=== PATIENT | male | born 1930 | race Caucasian/White ===

== ENCOUNTER 2017-01-06 10:16 | Emergency (ER) | payer OTHER ==
[~2017-01-06] VITALS: Ht 175.3 cm; Wt 63.6 kg
[2017-01-06 11:33] LABS: HEMATOCRIT 31.2 % (38.0-50.0); MCH 33.1 PG (29.0-34.0); MCHC 33.3 G/DL (30.0-36.0); MCV 99.4 FL (86-99); MEAN PLAT.VOLUME 10.8 uM^3 (9.0-12.4); PLATELET COUNT 211 K/uL (156-360); RBC DIS.WIDTH-CV 11.9 % (11.8-14.6); RBC DIS.WIDTH-SD 43.1 % (39-53); RED BLOOD COUNT 3.14 M/uL (4.00-5.50); WHITE BLOOD COUNT 9.9 K/uL (4.1-10.2)
[2017-01-06 11:44] LABS: CHLORIDE 100 mEq/L (99-109); POTASSIUM 4.5 mEq/L (3.7-5.4); SODIUM 134 mEq/L (136-147)
[2017-01-06 11:46] LABS: GLUCOSE 103 mg/dL (70-99)
[2017-01-06 11:47] LABS: ANION GAP 8 MEQ/L (2-14)
[2017-01-06 11:48] LABS: INTER. NORMALIZED RATIO 1.1; PROTHROMBIN TIME 10.8 (9.2-11.2); TOTAL BILIRUBIN 0.4 mg/dL (0.0-1.0)
[2017-01-06 11:50] LABS: ALKALINE PHOSPHATASE 105 IU/L (3-129); GFR ESTIMATE (CALCULATED) > 59 mL/min/
[2017-01-06 11:51] LABS: UREA NITROGEN (BUN) 29 mg/dL (9-23)
[2017-01-06 11:53] LABS: CREATINE KINASE 48 IU/L (1-294)
[2017-01-06 12:40] VITALS: BP 176/70
== END 2017-01-06 12:51 | disposition home or self-care (01) ==
LOC: EME 10:16
PROVIDERS: Emergency Medicine
DX: S70.02XA Contusion of left hip, initial encounter (principal); W01.0XXA Fall on same level from slipping, tripping and stumbling without subsequent striking against object, initial encounter; Y93.01 Activity, walking, marching and hiking; Y92.009 Unspecified place in unspecified non-institutional (private) residence as the place of occurrence of the external cause
CPT/HCPCS: 73502; 73552; 80053; 82550; 85027; 85610; 85730; 99281; 99284

== ENCOUNTER 2017-02-14 17:20 | Inpatient (IN) | payer OTHER ==
[~2017-02-14] VITALS: Ht 175.3 cm; Wt 56.0 kg
[2017-02-14 18:38] LABS: HEMATOCRIT 34.4 % (38.0-50.0); MCH 32.9 PG (29.0-34.0); MCHC 32.6 G/DL (30.0-36.0); MCV 101.2 FL (86-99); MEAN PLAT.VOLUME 10.8 uM^3 (9.0-12.4); PLATELET COUNT 325 K/uL (156-360); RBC DIS.WIDTH-CV 12.1 % (11.8-14.6); RBC DIS.WIDTH-SD 44.9 % (39-53); WHITE BLOOD COUNT 20.3 K/uL (4.1-10.2)
[2017-02-14 18:47] LABS: CHLORIDE 97 mEq/L (99-109); POTASSIUM 4.9 mEq/L (3.7-5.4); SODIUM 135 mEq/L (136-147)
[2017-02-14 18:49] LABS: GLUCOSE 129 mg/dL (70-99)
[2017-02-14 18:50] LABS: ANION GAP 11 MEQ/L (2-14)
[2017-02-14 18:51] LABS: TOTAL BILIRUBIN 0.6 mg/dL (0.0-1.0)
[2017-02-14 18:52] LABS: ALKALINE PHOSPHATASE 149 IU/L (3-129)
[2017-02-14 18:53] LABS: GFR ESTIMATE (CALCULATED) 47 mL/min/
[2017-02-14 18:54] LABS: UREA NITROGEN (BUN) 49 mg/dL (9-23)
[2017-02-14 18:56] LABS: LIPASE 13 U/L (1.0-51.0)
[2017-02-14 18:59] LABS: TROP-I INTERPRETATION NEGATIVE; TROPONIN-I < 0.01 ng/mL (0.0-0.30)
[2017-02-14] MEDS ORDERED: CO Q-1010 MG PO (22:14)
[2017-02-15 01:35] VITALS: BP 162/83
[2017-02-15 03:33] VITALS: BP 147/66
[2017-02-15 06:06] LABS: HEMATOCRIT 26.7 % (38.0-50.0); MCH 34.2 PG (29.0-34.0); MCHC 33.7 G/DL (30.0-36.0); MCV 101.5 FL (86-99); MEAN PLAT.VOLUME 10.6 uM^3 (9.0-12.4); PLATELET COUNT 241 K/uL (156-360); RBC DIS.WIDTH-CV 12.1 % (11.8-14.6); RBC DIS.WIDTH-SD 45.4 % (39-53); RED BLOOD COUNT 2.63 M/uL (4.00-5.50); WHITE BLOOD COUNT 15.7 K/uL (4.1-10.2)
[2017-02-15 06:44] LABS: ALKALINE PHOSPHATASE 97 IU/L (3-129); ANION GAP 6 MEQ/L (2-14); CHLORIDE 104 MEQ/L (99-109); GFR ESTIMATE (CALCULATED) > 59 mL/min/; GLUCOSE 100 mg/dL (70-99); SAMPLE HEMOLYSIS CHECK 0; SAMPLE ICTERIC CHECK 0; SAMPLE LIPEMIA CHECK 0; SODIUM 138 MEQ/L (136-147); TOTAL BILIRUBIN 0.4 MG/DL (0.0-1.0); UREA NITROGEN (BUN) 43 mg/dL (9-23)
[2017-02-15 06:46] LABS: POTASSIUM 3.7 MEQ/L (3.7-5.4)
[2017-02-15 07:47] VITALS: BP 187/80
[2017-02-15 07:49] LABS: FERRITIN 390 NG/ML (22-322)
[2017-02-15 11:14] VITALS: BP 142/67
[2017-02-15 12:53] LABS: INTER. NORMALIZED RATIO 1.2; PROTHROMBIN TIME 12.5 (9.2-11.2); PTT 37.3 (25-32)
[2017-02-15 12:54] LABS: HEMATOCRIT 29.3 % (38.0-50.0); MCV 101.4 FL (86-99)
[2017-02-15 15:04] LABS: TYPE OF FLUID PLEURAL
[2017-02-15 15:21] VITALS: BP 138/63
[2017-02-15 15:43] LABS: BODY FLUID EOSINOPHILS 0 % (0-25); BODY FLUID RBC'S 3000 /MM^3 (0-100); BODY FLUID WBC'S 1330 /MM^3 (0-500); MONONUCLEAR WBC'S 5 %; POLYNUCLEAR WBC'S 95 % (0-25)
[2017-02-15 16:13] LABS: BODY FLUID LDH 1478 IU/L
[2017-02-15 18:57] LABS: GLUCOSE 189 mg/dL (70-99); HDL CHOLESTEROL 22 MG/DL (Desirable>=40); LDL CHOLESTEROL 49 mg/dL (Desirable<100); NON-HDL CHOLESTEROL 62 mg/dL (Desirable<160); TOTAL CHOLESTEROL 84 mg/dL (Desirable<200); TRIGLYCERIDES 65 MG/DL (Normal: <150)
[2017-02-15 19:36] VITALS: BP 142/56
[2017-02-16 00:13] VITALS: BP 133/64
[2017-02-16 07:12] LABS: ADD MIUA? YES; BILIRUBIN NEGATIVE; BLOOD SMALL; COLOR YELLOW ((YELLOW)); GLUCOSE (STRIP) NEGATIVE; KETONES NEGATIVE; LEUKOCYTES NEGATIVE; NITRITE NEGATIVE; PROTEIN (STRIP) 30; SPECIFIC GRAVITY 1.027 (1.000-1.030); UROBILINOGEN 0.2 MG/DL (0.2-1.0)
[2017-02-16 07:21] LABS: HEMATOCRIT 26.6 % (38.0-50.0); MCH 34.1 PG (29.0-34.0); MCHC 33.8 G/DL (30.0-36.0); MCV 100.8 FL (86-99); MEAN PLAT.VOLUME 11.5 uM^3 (9.0-12.4); PLATELET COUNT 276 K/uL (156-360); RBC DIS.WIDTH-CV 12.4 % (11.8-14.6); RBC DIS.WIDTH-SD 45.7 % (39-53); RED BLOOD COUNT 2.64 M/uL (4.00-5.50)
[2017-02-16 07:34] LABS: BACTERIA 1+ /HPF; EPITHELIAL CELLS RARE /HPF; MUCUS TRACE /LPF; UCUL ADDED? NO; WHITE BLOOD CELLS 0-5 /HPF (0-5)
[2017-02-16 07:38] VITALS: BP 152/72
[2017-02-16 08:23] LABS: ANION GAP 10 MEQ/L (2-14); CHLORIDE 106 MEQ/L (99-109); GFR ESTIMATE (CALCULATED) > 59 mL/min/; IRON 13 MCG/DL (35-150); POTASSIUM 3.7 MEQ/L (3.7-5.4); SAMPLE HEMOLYSIS CHECK 0; SAMPLE ICTERIC CHECK 0; SAMPLE LIPEMIA CHECK 0; SODIUM 139 MEQ/L (136-147); UREA NITROGEN (BUN) 38 mg/dL (9-23)
[2017-02-16 08:25] LABS: GLUCOSE 89 mg/dL (70-99)
[2017-02-16 10:45] LABS: INTERNAL CONTROL VALID? YES
[2017-02-16 11:19] VITALS: BP 132/63
[2017-02-16 15:28] VITALS: BP 162/77
[2017-02-16 19:38] VITALS: BP 165/74
[2017-02-16 23:57] VITALS: BP 170/77
[2017-02-17 03:25] VITALS: BP 173/77
[2017-02-17 06:50] LABS: EOSINOPHIL (%) 0.3 % (0-5); HEMATOCRIT 25.6 % (38.0-50.0); IMMATURE GRANULOCYTE COUNT 0.1 K/uL; LYMPHOCYTE COUNT 0.8 K/uL (1.0-2.8); MCH 34.3 PG (29.0-34.0); MCV 100.8 FL (86-99); MEAN PLAT.VOLUME 11.2 uM^3 (9.0-12.4); MONOCYTE (%) 4.5 % (3-12); MONOCYTE COUNT 0.6 K/uL (0-0.8); NEUTROPHIL (%) 88.4 % (45-76); PLATELET COUNT 295 K/uL (156-360); RBC DIS.WIDTH-CV 12.3 % (11.8-14.6); RBC DIS.WIDTH-SD 45.8 % (39-53); RED BLOOD COUNT 2.54 M/uL (4.00-5.50); WHITE BLOOD COUNT 13.6 K/uL (4.1-10.2)
[2017-02-17 07:15] LABS: ANION GAP 5 MEQ/L (2-14); CHLORIDE 106 MEQ/L (99-109); GFR ESTIMATE (CALCULATED) > 59 mL/min/; GLUCOSE 95 mg/dL (70-99); POTASSIUM 3.5 MEQ/L (3.7-5.4); SAMPLE HEMOLYSIS CHECK 0; SAMPLE ICTERIC CHECK 0; SAMPLE LIPEMIA CHECK 0; SODIUM 137 MEQ/L (136-147); UREA NITROGEN (BUN) 35 mg/dL (9-23)
[2017-02-17 07:46] VITALS: BP 134/63
[2017-02-17 15:15] VITALS: BP 149/67
[2017-02-17 23:50] VITALS: BP 122/69
[2017-02-18 00:15] LABS: QGTB-NIL 0.13 IU/mL (()); TB AG-NIL <0.00 IU/mL (())
[2017-02-18 05:24] LABS: EOSINOPHIL (%) 0.5 % (0-5); EOSINOPHIL COUNT 0.1 K/uL (0-0.3); HEMATOCRIT 27.6 % (38.0-50.0); IMMATURE GRANULOCYTE (%) 1.8 % (0.0-0.7); IMMATURE GRANULOCYTE COUNT 0.2 K/uL; INSTRUMENT ABS NEUTROPHIL CT 11.1 K/uL; LYMPHOCYTE COUNT 0.9 K/uL (1.0-2.8); MCH 33.1 PG (29.0-34.0); MCHC 32.6 G/DL (30.0-36.0); MCV 101.5 FL (86-99); MEAN PLAT.VOLUME 10.5 uM^3 (9.0-12.4); MONOCYTE (%) 5.2 % (3-12); MONOCYTE COUNT 0.7 K/uL (0-0.8); NEUTROPHIL (%) 85.5 % (45-76); NEUTROPHIL COUNT 11.1 K/uL (1.8-6.4); PLATELET COUNT 339 K/uL (156-360); RBC DIS.WIDTH-CV 12.4 % (11.8-14.6); RBC DIS.WIDTH-SD 46.1 % (39-53); RED BLOOD COUNT 2.72 M/uL (4.00-5.50); WHITE BLOOD COUNT 12.9 K/uL (4.1-10.2)
[2017-02-18 05:49] LABS: ANION GAP 5 MEQ/L (2-14); CHLORIDE 107 MEQ/L (99-109); GFR ESTIMATE (CALCULATED) > 59 mL/min/; GLUCOSE 93 mg/dL (70-99); SAMPLE HEMOLYSIS CHECK 0; SAMPLE ICTERIC CHECK 0; SAMPLE LIPEMIA CHECK 0; SODIUM 138 MEQ/L (136-147); UREA NITROGEN (BUN) 29 mg/dL (9-23)
[2017-02-18 07:54] VITALS: BP 172/78
[2017-02-18 11:55] VITALS: BP 141/69
[2017-02-18 15:30] VITALS: BP 147/67
[2017-02-19] VITALS: BP 156/74
[2017-02-19 05:56] LABS: EOSINOPHIL COUNT 0.1 K/uL (0-0.3); IMMATURE GRANULOCYTE (%) 2.2 % (0.0-0.7); IMMATURE GRANULOCYTE COUNT 0.3 K/uL; INSTRUMENT ABS NEUTROPHIL CT 11.2 K/uL; LYMPHOCYTE COUNT 0.9 K/uL (1.0-2.8); MCH 33.7 PG (29.0-34.0); MCHC 33.5 G/DL (30.0-36.0); MCV 100.8 FL (86-99); MEAN PLAT.VOLUME 10.6 uM^3 (9.0-12.4); MONOCYTE (%) 5.1 % (3-12); MONOCYTE COUNT 0.7 K/uL (0-0.8); NEUTROPHIL (%) 84.7 % (45-76); NEUTROPHIL COUNT 11.2 K/uL (1.8-6.4); PLATELET COUNT 383 K/uL (156-360); RBC DIS.WIDTH-CV 12.3 % (11.8-14.6); RBC DIS.WIDTH-SD 45.5 % (39-53); RED BLOOD COUNT 2.58 M/uL (4.00-5.50); WHITE BLOOD COUNT 13.2 K/uL (4.1-10.2)
[2017-02-19 07:49] VITALS: BP 140/66
[2017-02-19 15:41] VITALS: BP 187/84
[2017-02-19 18:30] VITALS: BP 138/52
[2017-02-20] VITALS (9 sets, daily range): BP systolic 117–148; BP diastolic 48–76
[2017-02-20 06:48] LABS: EOSINOPHIL (%) 1.1 % (0-5); EOSINOPHIL COUNT 0.2 K/uL (0-0.3); HEMATOCRIT 26.8 % (38.0-50.0); IMMATURE GRANULOCYTE (%) 2.5 % (0.0-0.7); IMMATURE GRANULOCYTE COUNT 0.4 K/uL; MCH 33.1 PG (29.0-34.0); MCHC 33.2 G/DL (30.0-36.0); MCV 99.6 FL (86-99); MEAN PLAT.VOLUME 10.2 uM^3 (9.0-12.4); MONOCYTE (%) 5.3 % (3-12); MONOCYTE COUNT 0.8 K/uL (0-0.8); NEUTROPHIL (%) 83.8 % (45-76); PLATELET COUNT 427 K/uL (156-360); RBC DIS.WIDTH-CV 12.4 % (11.8-14.6); RBC DIS.WIDTH-SD 45.1 % (39-53); RED BLOOD COUNT 2.69 M/uL (4.00-5.50); WHITE BLOOD COUNT 14.3 K/uL (4.1-10.2)
[2017-02-20 12:23] LABS: Estimated Average Glucose 117 mg/dL (70-123); HEMOGLOBIN A1c (GLYCOHEMOGLOB) 5.7 % HGB (Below 5.7)
[2017-02-20 18:32] LABS: BICARBONATE 24.2 mEq/L (22-26); CARBOXY HGB 1.7 % (0-5); COMMENTS - BLOOD GASES A+C+; METHEMOGLOBIN 1.9 % (0-1.5); PCO2 47 mm Hg (35-45); PO2 119 mm Hg (80-100); SITE RR; pH 7.32 (7.35-7.45)
[2017-02-20 18:33] LABS: DEVICE SIMPLE MASK
[2017-02-20 18:57] LABS: TROP-I INTERPRETATION NEGATIVE; TROPONIN-I 0.02 ng/mL (0.0-0.30)
[2017-02-20 21:49] LABS: METH RESISTANT S AUREUS PCR NEGATIVE (NEGATIVE)
[2017-02-20 21:57] LABS: PROBE CHECK PASS; SPECIMEN PROCESSING CONTROL PASS
[2017-02-20 22:15] LABS: TROP-I INTERPRETATION NEGATIVE; TROPONIN-I 0.01 ng/mL (0.0-0.30)
[2017-02-21] VITALS (9 sets, daily range): BP systolic 114–142; BP diastolic 51–61
[2017-02-21 02:44] LABS: TROP-I INTERPRETATION NEGATIVE; TROPONIN-I 0.03 ng/mL (0.0-0.30)
[2017-02-21 05:46] LABS: ANION GAP 8 MEQ/L (2-14); CHLORIDE 109 MEQ/L (99-109); GFR ESTIMATE (CALCULATED) > 59 mL/min/; GLUCOSE 84 mg/dL (70-99); POTASSIUM 3.7 MEQ/L (3.7-5.4); SAMPLE HEMOLYSIS CHECK 0; SAMPLE ICTERIC CHECK 0; SAMPLE LIPEMIA CHECK 0; SODIUM 141 MEQ/L (136-147); UREA NITROGEN (BUN) 23 mg/dL (9-23)
[2017-02-21 06:27] LABS: HEMATOCRIT 25.1 % (38.0-50.0); MCH 33.5 PG (29.0-34.0); MCHC 33.1 G/DL (30.0-36.0); MCV 101.2 FL (86-99); MEAN PLAT.VOLUME 10.5 uM^3 (9.0-12.4); PLATELET COUNT 411 K/uL (156-360); RBC DIS.WIDTH-CV 12.4 % (11.8-14.6); RBC DIS.WIDTH-SD 46.4 % (39-53); RED BLOOD COUNT 2.48 M/uL (4.00-5.50); WHITE BLOOD COUNT 18.9 K/uL (4.1-10.2)
[2017-02-21 06:49] LABS: EOSINOPHIL (%) 0 % (0-5); IMMATURE GRANULOCYTE (%) 1.4 % (0.0-0.7); IMMATURE GRANULOCYTE COUNT 0.3 K/uL; INSTRUMENT ABS NEUTROPHIL CT 17.6 K/uL; LYMPHOCYTE COUNT 0.7 K/uL (1.0-2.8); MONOCYTE (%) 2.1 % (3-12); MONOCYTE COUNT 0.4 K/uL (0-0.8); NEUTROPHIL (%) 92.8 % (45-76); NEUTROPHIL COUNT 17.6 K/uL (1.8-6.4)
[2017-02-22] VITALS (9 sets, daily range): BP systolic 116–152; BP diastolic 47–74
[2017-02-22 05:56] LABS: EOSINOPHIL (%) 0.4 % (0-5); EOSINOPHIL COUNT 0.1 K/uL (0-0.3); HEMATOCRIT 24.6 % (38.0-50.0); IMMATURE GRANULOCYTE (%) 1.3 % (0.0-0.7); IMMATURE GRANULOCYTE COUNT 0.2 K/uL; INSTRUMENT ABS NEUTROPHIL CT 14.5 K/uL; LYMPHOCYTE COUNT 0.7 K/uL (1.0-2.8); MCH 34.2 PG (29.0-34.0); MCHC 33.7 G/DL (30.0-36.0); MCV 101.2 FL (86-99); MEAN PLAT.VOLUME 10.5 uM^3 (9.0-12.4); MONOCYTE COUNT 0.3 K/uL (0-0.8); NEUTROPHIL (%) 91.7 % (45-76); NEUTROPHIL COUNT 14.5 K/uL (1.8-6.4); PLATELET COUNT 473 K/uL (156-360); RBC DIS.WIDTH-CV 12.7 % (11.8-14.6); RBC DIS.WIDTH-SD 46.9 % (39-53); RED BLOOD COUNT 2.43 M/uL (4.00-5.50); WHITE BLOOD COUNT 15.8 K/uL (4.1-10.2)
[2017-02-22 06:22] LABS: ANION GAP 8 MEQ/L (2-14); CHLORIDE 110 MEQ/L (99-109); GFR ESTIMATE (CALCULATED) > 59 mL/min/; GLUCOSE 104 mg/dL (70-99); POTASSIUM 3.5 MEQ/L (3.7-5.4); SAMPLE HEMOLYSIS CHECK 0; SAMPLE ICTERIC CHECK 0; SAMPLE LIPEMIA CHECK 0; SODIUM 141 MEQ/L (136-147); UREA NITROGEN (BUN) 28 mg/dL (9-23)
[2017-02-23] VITALS: BP 134/63
[2017-02-23 04:00] VITALS: BP 134/52
[2017-02-23 08:00] VITALS: BP 162/76
[2017-02-23 12:00] VITALS: BP 142/62
[2017-02-23 16:00] VITALS: BP 142/60
[2017-02-23 20:00] VITALS: BP 142/59
[2017-02-24] VITALS (8 sets, daily range): BP systolic 124–151; BP diastolic 51–60
[2017-02-24 06:29] LABS: BASOPHIL COUNT 0.1 K/uL (0-0.1); EOSINOPHIL (%) 2.1 % (0-5); EOSINOPHIL COUNT 0.3 K/uL (0-0.3); HEMATOCRIT 27.1 % (38.0-50.0); IMMATURE GRANULOCYTE (%) 2.6 % (0.0-0.7); IMMATURE GRANULOCYTE COUNT 0.3 K/uL; INSTRUMENT ABS NEUTROPHIL CT 10.8 K/uL; LYMPHOCYTE COUNT 1.1 K/uL (1.0-2.8); MCH 32.8 PG (29.0-34.0); MCHC 32.8 G/DL (30.0-36.0); MEAN PLAT.VOLUME 9.9 uM^3 (9.0-12.4); MONOCYTE COUNT 0.4 K/uL (0-0.8); NEUTROPHIL (%) 83.4 % (45-76); NEUTROPHIL COUNT 10.8 K/uL (1.8-6.4); PLATELET COUNT 504 K/uL (156-360); RBC DIS.WIDTH-CV 13.1 % (11.8-14.6); RBC DIS.WIDTH-SD 47.2 % (39-53); RED BLOOD COUNT 2.71 M/uL (4.00-5.50); WHITE BLOOD COUNT 12.9 K/uL (4.1-10.2)
[2017-02-24 06:54] LABS: ANION GAP 5 MEQ/L (2-14); CHLORIDE 109 MEQ/L (99-109); GFR ESTIMATE (CALCULATED) > 59 mL/min/; GLUCOSE 85 mg/dL (70-99); POTASSIUM 3.8 MEQ/L (3.7-5.4); SAMPLE HEMOLYSIS CHECK 0; SAMPLE ICTERIC CHECK 0; SAMPLE LIPEMIA CHECK 0; SODIUM 140 MEQ/L (136-147); UREA NITROGEN (BUN) 24 mg/dL (9-23)
[2017-02-25] VITALS: BP 139/51
[2017-02-25 04:00] VITALS: BP 134/52
[2017-02-25 06:21] LABS: BASOPHIL COUNT 0.1 K/uL (0-0.1); EOSINOPHIL (%) 2.4 % (0-5); EOSINOPHIL COUNT 0.3 K/uL (0-0.3); HEMATOCRIT 24.6 % (38.0-50.0); IMMATURE GRANULOCYTE (%) 2.8 % (0.0-0.7); IMMATURE GRANULOCYTE COUNT 0.3 K/uL; INSTRUMENT ABS NEUTROPHIL CT 9.5 K/uL; LYMPHOCYTE COUNT 0.9 K/uL (1.0-2.8); MCH 32.9 PG (29.0-34.0); MCHC 32.9 G/DL (30.0-36.0); MEAN PLAT.VOLUME 9.9 uM^3 (9.0-12.4); MONOCYTE (%) 3.8 % (3-12); MONOCYTE COUNT 0.4 K/uL (0-0.8); NEUTROPHIL (%) 82.6 % (45-76); NEUTROPHIL COUNT 9.5 K/uL (1.8-6.4); PLATELET COUNT 469 K/uL (156-360); RBC DIS.WIDTH-SD 46.8 % (39-53); RED BLOOD COUNT 2.46 M/uL (4.00-5.50); WHITE BLOOD COUNT 11.5 K/uL (4.1-10.2)
[2017-02-25 06:50] LABS: ANION GAP 5 MEQ/L (2-14); CHLORIDE 109 MEQ/L (99-109); GFR ESTIMATE (CALCULATED) > 59 mL/min/; GLUCOSE 73 mg/dL (70-99); POTASSIUM 3.8 MEQ/L (3.7-5.4); SAMPLE HEMOLYSIS CHECK 0; SAMPLE ICTERIC CHECK 0; SAMPLE LIPEMIA CHECK 0; SODIUM 140 MEQ/L (136-147); UREA NITROGEN (BUN) 22 mg/dL (9-23)
[2017-02-25 08:00] VITALS: BP 138/70
[2017-02-25 12:00] VITALS: BP 157/79
[2017-02-25 16:00] VITALS: BP 151/59
[2017-02-25 20:00] VITALS: BP 159/73
[2017-02-26] VITALS (8 sets, daily range): BP systolic 116–157; BP diastolic 52–71
[2017-02-26 04:58] LABS: BASOPHIL COUNT 0.1 K/uL (0-0.1); EOSINOPHIL (%) 2.7 % (0-5); EOSINOPHIL COUNT 0.3 K/uL (0-0.3); HEMATOCRIT 25.8 % (38.0-50.0); IMMATURE GRANULOCYTE (%) 3.8 % (0.0-0.7); IMMATURE GRANULOCYTE COUNT 0.4 K/uL; INSTRUMENT ABS NEUTROPHIL CT 9.3 K/uL; LYMPHOCYTE COUNT 0.9 K/uL (1.0-2.8); MCH 32.8 PG (29.0-34.0); MCHC 33.3 G/DL (30.0-36.0); MCV 98.5 FL (86-99); MONOCYTE (%) 4.4 % (3-12); MONOCYTE COUNT 0.5 K/uL (0-0.8); NEUTROPHIL (%) 81.2 % (45-76); NEUTROPHIL COUNT 9.3 K/uL (1.8-6.4); PLATELET COUNT 471 K/uL (156-360); RBC DIS.WIDTH-CV 13.1 % (11.8-14.6); RBC DIS.WIDTH-SD 45.9 % (39-53); RED BLOOD COUNT 2.62 M/uL (4.00-5.50); WHITE BLOOD COUNT 11.4 K/uL (4.1-10.2)
[2017-02-26 05:19] LABS: CHLORIDE 108 mEq/L (99-109); POTASSIUM 3.3 mEq/L (3.7-5.4); SODIUM 139 mEq/L (136-147)
[2017-02-26 05:20] LABS: GLUCOSE 83 mg/dL (70-99)
[2017-02-26 05:22] LABS: ANION GAP 3 MEQ/L (2-14)
[2017-02-26 05:24] LABS: GFR ESTIMATE (CALCULATED) > 59 mL/min/
[2017-02-26 05:25] LABS: UREA NITROGEN (BUN) 20 mg/dL (9-23)
[2017-02-27] VITALS: BP 149/74
[2017-02-27 04:00] VITALS: BP 145/64
[2017-02-27 05:34] LABS: BASOPHIL COUNT 0.1 K/uL (0-0.1); EOSINOPHIL (%) 2.5 % (0-5); EOSINOPHIL COUNT 0.3 K/uL (0-0.3); HEMATOCRIT 26.8 % (38.0-50.0); IMMATURE GRANULOCYTE (%) 2.4 % (0.0-0.7); IMMATURE GRANULOCYTE COUNT 0.3 K/uL; INSTRUMENT ABS NEUTROPHIL CT 10.9 K/uL; MCH 33.7 PG (29.0-34.0); MCHC 34.3 G/DL (30.0-36.0); MCV 98.2 FL (86-99); MEAN PLAT.VOLUME 9.9 uM^3 (9.0-12.4); MONOCYTE (%) 4.3 % (3-12); MONOCYTE COUNT 0.6 K/uL (0-0.8); NEUTROPHIL (%) 82.7 % (45-76); NEUTROPHIL COUNT 10.9 K/uL (1.8-6.4); PLATELET COUNT 464 K/uL (156-360); RBC DIS.WIDTH-CV 13.2 % (11.8-14.6); RBC DIS.WIDTH-SD 46.1 % (39-53); RED BLOOD COUNT 2.73 M/uL (4.00-5.50); WHITE BLOOD COUNT 13.2 K/uL (4.1-10.2)
[2017-02-27 05:59] LABS: ANION GAP 5 MEQ/L (2-14); CHLORIDE 105 MEQ/L (99-109); GFR ESTIMATE (CALCULATED) > 59 mL/min/; GLUCOSE 84 mg/dL (70-99); POTASSIUM 3.1 MEQ/L (3.7-5.4); SAMPLE HEMOLYSIS CHECK 0; SAMPLE ICTERIC CHECK 0; SAMPLE LIPEMIA CHECK 0; SODIUM 137 MEQ/L (136-147); UREA NITROGEN (BUN) 19 mg/dL (9-23)
[2017-02-27 08:00] VITALS: BP 114/49
[2017-02-27 12:00] VITALS: BP 137/60
[2017-02-27] MEDS ORDERED: AMOX TR-K CLV1 EAC4 PO (14:24)
[2017-02-27] MEDS ORDERED: DIGOXIN125 MCG PO (14:25)
[2017-02-27] MEDS ORDERED: FERROUS SULFAT325 MG PO (14:25)
[2017-02-27] MEDS ORDERED: LOPRESSOR25 MG PO (14:25)
[2017-02-27] MEDS ORDERED: AMLODIPINE BESYL5 MG PO (14:26)
[2017-02-27] MEDS ORDERED: DOCUSATE SODIU100 MG PO (14:26)
[2017-02-27] MEDS ORDERED: ELIQUIS5 MG PO (15:54)
[2017-02-27 16:00] VITALS: BP 130/58
== END 2017-02-27 18:28 | disposition home or self-care (01) | DRG 163 ==
LOC: EME 17:20 → EDOF 23:32 → 5SOUTH 23:32 → 4WEST 23:32 → 5SOUTH 02-15 01:09 → 4WEST 02-20 20:10
PROVIDERS: Anesthesiology; Internal Medicine; Internal Medicine Pulmonary Disease; Nurse Practitioner Adult Health; Physician Assistant; Physician Assistant Medical; Radiology Diagnostic Radiology; Thoracic Surgery (Cardiothoracic Vascular Surgery)
DX: J85.1 Abscess of lung with pneumonia (principal); J86.9 Pyothorax without fistula; N17.9 Acute kidney failure, unspecified; J90 Pleural effusion, not elsewhere classified; I10 Essential (primary) hypertension; E11.9 Type 2 diabetes mellitus without complications; D53.9 Nutritional anemia, unspecified; E03.9 Hypothyroidism, unspecified; E87.1 Hypo-osmolality and hyponatremia; I48.0 Paroxysmal atrial fibrillation; J98.11 Atelectasis; N39.490 Overflow incontinence; R31.29 Other microscopic hematuria; Z68.1 Body mass index [BMI] 19.9 or less, adult; Z79.01 Long term (current) use of anticoagulants; Z91.81 History of falling; R00.1 Bradycardia, unspecified
CPT/HCPCS: 36600; 70450; 71010; 71020; 71260; 80048; 80053; 80061; 81003; 82272; 82607; 82728; 82803; 82945; 82947 91; 83036; 83540; 83605; 83615 91; 83690; 84155; 84157; 84443; 84466; 84484; 85014; 85018; 85025; 85027; 85610; 85730; 86480 90; 87040; 87070; 87075; 87076; 87116; 87205; 87206; 87449; 87641; 88108; 88305; 89051; 93005; 94799; 97530 GO; 99202; 99281; 99284; J0131; J0456; J0690; J0696; J1100; J1160; J1644; J1650; J1885; J2405; J2543; J2710; J2765; J3010; J7030; J7040; J7050; P9045

== ENCOUNTER 2017-10-25 11:09 | Emergency (ER) | payer OTHER ==
[~2017-10-25] VITALS: Ht 170.2 cm; Wt 58.4 kg
[~2017-10-25 11:09] MED LIST: AMLODIPINE BESYL5 MG PO; AMOX TR-K CLV1 EAC4 PO; CO Q-1010 MG PO; DIGOXIN125 MCG PO; DOCUSATE SODIU100 MG PO; ELIQUIS5 MG PO; FERROUS SULFAT325 MG PO; LOPRESSOR25 MG PO
[2017-10-25 11:29] LABS: HEMOGLOBIN 10.8 G/DL (12.5-16.6); MCH 33.8 PG (29.0-34.0); MCHC 34.8 G/DL (30.0-36.0); MCV 96.9 FL (86-99); PLATELET COUNT 166 K/uL (156-360); RBC DIS.WIDTH-SD 42.8 % (39-53); WHITE BLOOD COUNT 10.3 K/uL (4.1-10.2)
[2017-10-25 11:42] LABS: CHLORIDE 101 mEq/L (99-109); POTASSIUM 4.4 mEq/L (3.7-5.4); SODIUM 134 mEq/L (136-147)
[2017-10-25 11:44] LABS: GLUCOSE 100 mg/dL (70-99)
[2017-10-25 11:48] LABS: CREATININE 1.2 mg/dL (0.6-1.3); GFR ESTIMATE (CALCULATED) > 59 mL/min/ (58.99-99999)
[2017-10-25 11:49] LABS: UREA NITROGEN (BUN) 28 mg/dL (9-23)
[2017-10-25] MEDS ORDERED: AZITHROMYCIN250 MG1 PO (15:26)
[2017-10-25 15:46] VITALS: BP 131/61
== END 2017-10-25 15:48 | disposition home or self-care (01) ==
LOC: EME 11:09
PROVIDERS: Physician Assistant
DX: J18.9 Pneumonia, unspecified organism (principal); J44.0 Chronic obstructive pulmonary disease with (acute) lower respiratory infection; I10 Essential (primary) hypertension; E03.9 Hypothyroidism, unspecified
CPT/HCPCS: 71046; 80048; 85027; 87502; 99281; 99285